=== PATIENT | female | born 2005 | race Caucasian/White ===

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

== ENCOUNTER 2023-04-27 12:31 | Emergency (ER) | payer BC, SELFPAY ==
[2023-04-27 12:47] VITALS: BP 145/68; PULSE 109; RESP 16; TEMP 36.9; O2SAT 100
--- NOTE | 2023-04-27 12:56 | NUR.NOTE ---
Nursing Note: ice pack given
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
[2023-04-27] MEDS: Ibuprofen 600 MG TAB PO (15:56)
[2023-04-27] MEDS: Acetaminophen 500 MG TAB 1000 MG PO (15:56)
[2023-04-27 16:08] VITALS: BP 112/69; PULSE 73; RESP 16; O2SAT 99
== END 2023-04-27 16:38 | disposition home or self-care (01) ==
PROVIDERS: Emergency Provider Emergency Medicine; PCP Student in an Organized Health Care Education/Training Program
DX: S09.90XA Unspecified injury of head, initial encounter (principal); S70.311A Abrasion, right thigh, initial encounter; Y04.2XXA Assault by strike against or bumped into by another person, initial encounter; Y93.89 Activity, other specified; Y92.89 Other specified places as the place of occurrence of the external cause; Y99.9 Unspecified external cause status
CPT/HCPCS: 99282

== ENCOUNTER 2023-10-25 15:14 | Emergency (ER) | payer BC, SELFPAY ==
[2023-10-25 15:18] VITALS: BP 110/68; PULSE 63; RESP 20; TEMP 37.1; O2SAT 100
--- NOTE | 2023-10-25 15:21 | W.ED.GENAD ---
HPI General Date/Time Provider Initiated Documentation: 10/25/23 15:21. HPI Narrative: MDM This is an overall well-appearing normothermic and not tachycardic 18-year-old female with recurrent suprapubic discomfort reminiscent of prior episodes of dysmenorrhea. No vaginal bleeding to suggest benefit from transfusion. Patient has recently been treated by [facility] for chlamydia however in the absence of fevers abnormal vaginal discharge and unilateral pain my suspicion for tubo-ovarian abscess is low. Furthermore given no abnormal vaginal discharge and normothermia my suspicion for pelvic inflammatory disease is low so I did not complete a speculum exam nor feel that the patient required antibiotics. No pain out of proportion to suggest necrotizing soft tissue infection. No flank pain to suggest ureterolithiasis. Based on the patient's age my suspicion for ruptured AAA is exceedingly low so I did not feel that the patient required a CT scan. No right lower quadrant tenderness to suggest appendicitis. No left lower quadrant tenderness to suggest diverticulitis. No history of past abdominal surgeries so my suspicion is low for SBO. No dysuria nor frequency so doubt urinary tract infection. No rash to abdomen to suggest zoster. Given her marijuana use it is certainly possible that this could be contributing to her abdominal pain she does have a history of cyclic vomiting syndrome and she could possibly have a history of cannabinoid hyperemesis syndrome. Given patient's emesis will obtain basic labs to assess for hypokalemia, provide ondansetron for nausea, ketorolac for pain, and treat with 500 cc of crystalloid. If symptoms do not improve with ondansetron we will consider low-dose droperidol. Certainly given that she has not been able to be adherent with her patch her dysmenorrhea could be the cause of her symptoms. 4:11 PM CBC lacks anemia thrombocytopenia and leukocytosis. Serum hCG negative. Basic metabolic panel showing mild anion gap at 12.4. Potassium of 3.1 mmol/L. Given potassium greater than 3 will defer ECG at this point as my suspicion for QTc prolongation is low. Patient feels improved. She is no longer vomiting. 4:20 PM Patient passed p.o. trial in the emergency department. She felt markedly improved. Will prescribe short course of ondansetron as needed. Will advise PCP follow-up as needed and advise ED return for worsening pain or inability to tolerate p.o. Chronic conditions affecting the care of the patient: Dysmenorrhea History obtained from an outside historian: N/A External record [place] [facility] [place]enter[place] appointments Medications: Ketorolac fluids ondansetron Social determinants of health affecting disposition: N/A Management discussed with: N/A Treatment/interventions considered: N/A Response to therapies provided: Improved symptoms following treatment HPI This is a 18-year-old female with a history of dysmenorrhea on oral contraceptive patch arrived to the emergency department via private vehicle in the setting of menstrual cramping. Patient reports that she has not been able to adhere with her patch as it frequently comes off when she takes a shower. She says that she feels nauseous and suddenly began vomiting this afternoon. Symptoms are reminiscent of prior episodes of dysmenorrhea. She endorses a cramping pelvic and suprapubic pain. She was treated several weeks ago for chlamydia but has not had any abnormal vaginal discharge. She denies dysuria frequency. She has never had any surgeries to her abdomen. She denies routine tobacco and ethanol but does smoke marijuana. She has had no fevers. No falls in her abdomen. No rash to her abdomen. No history of ureterolithiasis. Patient denies vaginal bleeding. Exam General: Uncomfortable-appearing in no acute distress speaking in complete sentences. Head: Normocephalic, atraumatic. Eye: Extraocular eye movements intact. No conjunctival injection. No scleral icterus. Ear, nose, mouth, throat: Grossly normal inspection. Normal voice, handling secretions normally. Neck: Trachea midline. Cardiovascular: Well-perfused distal extremities. Regular rate and rhythm Respiratory: Nonlabored respiration. Clear lungs bilaterally Gastrointestinal: Nondistended abdomen. Soft nontender. No rebound. No guarding. No rash to abdomen. Musculoskeletal: No edema. Moving all 4 extremities spontaneously. Skin: Normal for age and race, grossly normal temperature and turgor. No acute rash. Neurologic: Alert and appropriate, no apparent acute deficits. Psychiatric: Mood and manner are appropriate. Grooming and personal hygiene are appropriate. Related Data Home Medications Medication Instructions Recorded Confirmed methylphenidate HCl 5 mg tablet 5 mg PO DAILY PRN ADHD #30 tabs 01/30/22 10/25/23 amitriptyline 10 mg tablet 10 mg PO DAILY #30 tabs 04/17/22 10/25/23 amitriptyline 25 mg tablet 25 mg PO QHS #90 tabs 04/17/22 10/25/23 methylphenidate HCl 27 mg 27 mg PO QAM #30 tabs 08/12/22 10/25/23 tablet,extended release 24 hr (Concerta) naproxen 500 mg tablet 500 mg PO DAILY PRN pain #30 tabs 08/12/22 10/25/23 omeprazole 20 mg capsule,delayed 20 mg PO BID #60 caps 08/12/22 10/25/23 release ondansetron 4 mg disintegrating 4 mg PO Q6H PRN nausea and 08/12/22 10/25/23 tablet vomiting #14 tabs promethazine 25 mg tablet 25 mg PO Q6H PRN #12 tabs 10/13/22 10/25/23 levonorgestrel-ethinyl estradiol 1 tab PO DAILY #84 tabs 05/28/23 10/25/23 0.1 mg-20 mcg tablet norelgestromin 150 mcg-e.estradiol 1 patch transdermal QWEEK 10/25/23 10/25/23 35 mcg/24 hr weekly transderm patch (Xulane) norelgestromin 150 mcg-e.estradiol 1 patch transdermal Q7D 10/25/23 10/25/23 35 mcg/24 hr weekly transderm patch (Zafemy) ondansetron 4 mg disintegrating 4 mg PO BID 5 days #10 tabs 10/25/23 tablet Previous Rx's Medication Instructions Recorded methylphenidate HCl 5 mg tablet 5 mg PO DAILY PRN ADHD #30 tabs 01/30/22 amitriptyline 10 mg tablet 10 mg PO DAILY #30 tabs 04/17/22 amitriptyline 25 mg tablet 25 mg PO QHS #90 tabs 04/17/22 methylphenidate HCl 27 mg 27 mg PO QAM #30 tabs 08/12/22 tablet,extended release 24 hr (Concerta) naproxen 500 mg tablet 500 mg PO DAILY PRN pain #30 tabs 08/12/22 omeprazole 20 mg capsule,delayed 20 mg PO BID #60 caps 08/12/22 release ondansetron 4 mg disintegrating 4 mg PO Q6H PRN nausea and 08/12/22 tablet vomiting #14 tabs promethazine 25 mg tablet 25 mg PO Q6H PRN #12 tabs 10/13/22 levonorgestrel-ethinyl estradiol 1 tab PO DAILY #84 tabs 05/28/23 0.1 mg-20 mcg tablet ondansetron 4 mg disintegrating 4 mg PO BID 5 days #10 tabs 10/25/23 tablet Allergies Allergy/AdvReac Type Severity Reaction Status Date / Time No Known Allergies Allergy Verified 10/25/23 16:10 General KAYY: 3 Medical Decision Making Quality:SDOH Health Related Social Needs: No Data to Display PFSH All Active Problems (Updated 10/25/23 @ 16:21 by Mp Feliciano MD) Menstrual cramps (Acute) Localized swelling of right forearm (Acute) Swelling (Acute) Dysmenorrhea (Acute) Cyclic vomiting syndrome (Acute) Abdominal pain (Acute) with N/V/D referred to GI with plan for endoscopy and colonscopy Generalized anxiety disorder (Acute) ADHD (attention deficit hyperactivity disorder), combined type (Acute) Dysthymia (Acute) Contraception (Acute) Chronic migraine (Acute) Followed by Neuro. typically during menses. Last neuro note states that they should provide advil before onset of menses and continue through. If that does not work will consider taking Topamax on the same schedule. Medical History Depression Migraine Nausea & vomiting Family History Mother Depression Father No problems noted. Sister Depression Ino-Danlos disease Sister Depression Brother No problems noted. Brother No problems noted. Brother No problems noted. Brother No problems noted. GRANDPARENT Substance abuse Essential hypertension Hyperlipidemia Mental disorder DEPRESSIN Neoplasm Social History Smoking/Tobacco Use Status: Never Smoking risk assessment performed?: Yes Alcohol Intake: current Alcohol Intake frequency: a few times a month Drug use: Occasionally Substance use type: marijuana Details: Pt has a medical marijuana card Housing: house Pets and animals: Yes Pets and animals: dog(s) Sexually active: Yes Do you think of yourself as: straight/heterosexual Current gender identity: female Do you feel safe at home: Yes Do you feel safe in your relationship?: Yes Female Reproductive History Menstrual Age of Menarche: 8 Duration of menses: 6-7 days control method: condoms History History 0 Para Hx # Term Pregnancies Multiple births Hx # Pregnancies Ectopic pregnancies AB induced Hx Number of Living Children AB spontaneous Discharge Plan Disposition Patient Disposition: Home Discharge Details Clinical Impression: Menstrual cramps Primary Care Provider: Vera,Local ED Provider: Mp Feliciano [place] Meds and New Rx's Prescriptions: New ondansetron 4 mg tablet,disintegrating 4 mg PO BID 5 Days Qty: 10 0RF Continued ondansetron 4 mg tablet,disintegrating 4 mg PO Q6H PRN (Reason: nausea and vomiting) Qty: 14 1RF Patient Comments: pt states she does not take anymore Rx Instructions: take one tablet as needed every 6 hours for nausea and vomiting naproxen 500 mg tablet 500 mg PO DAILY PRN (Reason: pain) Qty: 30 0RF methylphenidate HCl [Concerta] 27 mg tablet extended release 24hr 27 mg PO QAM MDD 27mg Qty: 30 0RF Rx Instructions: take one capsule once a day in the morning omeprazole 20 mg capsule,delayed release(DR/EC) 20 mg PO BID Qty: 60 1RF Patient Comments: pt states she does not take anymore Rx Instructions: take one capsule twice a day for 4 weeks methylphenidate HCl 5 mg tablet 5 mg PO DAILY MDD 5 mg PRN (Reason: ADHD) Qty: 30 0RF Rx Instructions: take one tablet once a day in the afternoon as needed amitriptyline 25 mg tablet 25 mg PO QHS Qty: 90 1RF Rx Instructions: take one tablet once a day at bedtime amitriptyline 10 mg tablet 10 mg PO DAILY Qty: 30 3RF Rx Instructions: take one tablet once a day in addition to amitriptyline 25 mg levonorgestrel-ethinyl estrad 0.1-20 mg-mcg tablet 1 tab PO DAILY Qty: 84 0RF norelgestromin-ethin.estradiol [Xulane] 150-35 mcg/24 hr patch weekly 1 patch transdermal QWEEK Rx Instructions: apply once weekly for 3 weeks of a 4-week cycle norelgestromin-ethin.estradiol [Zafemy] 150-35 mcg/24 hr patch weekly 1 patch transdermal Q7D Patient Comments: PLACE ONE PATCH ON THE SKIN ONE TIME PER WEEK. CHANGE PATCH WEEKLY, USE PATCH CONTINUOUSLY WITHOUT BREAKS. promethazine 25 mg tablet 25 mg PO Q6H PRNQty: 12 0RF Patient Comments: pt states she does not take anymore Discharge Instructions Additional Instructions: You are seen in the emergency department for your abdominal pain. Your blood work showed no signs of infection. Please return as we discussed the emergency department if you develop worsening pain cannot eat or drink or if you have any other concerns. Otherwise please follow-up with your primary care provider. A short course of nausea medicine has been sent electronically to your pharmacy. Please take these if needed. Discharge Data Discharge Date/Time-TO BE ENTERED AT DEPARTURE: 10/25/23 16:32
[2023-10-25] MEDS: Ondansetron 4 MG/2 ML VIAL IVP (15:43)
[2023-10-25] MEDS: Normal Saline 500 ML IV (15:44)
[2023-10-25] MEDS: Ketorolac 15 MG/ML VIAL IVP (15:44)
[2023-10-25 15:45] LABS: Abs Immature Grans 0.02 10^3/uL (0.0-0.06); Absolute Basophil Count 0.06 10^3/uL (0.0-0.2); Absolute Eosinophil Count 0.13 10^3/uL (0.0-0.7); Absolute Lymphocyte Count 3.26 10^3/uL (1.2-3.4); Absolute Monocyte Count 0.55 10^3/uL (0.1-0.8); Basophils % 0.8; Eosinophils % 1.7; HCT 39.2 % (36.0-46.0); HGB 13.4 g/dL (11.2-15.7); Immature Grans % 0.3; Lymphocytes % 42.8; MCH 30.5 pg (27.0-33.0); MCHC 34.2 % (32.0-36.0); MCV 89 fL (80-95); MPV 10.2 fL (8.0-11.0); Monocytes % 7.2; Neutrophils % 47.2; Platelet Count 199 10^3/uL (130-400); RDW 11.9 % (11.7-14.6); RDW-SD 38.3 fL; WBC 7.62 10^3/uL (4.4-10.8)
[2023-10-25 15:55] LABS: Anion Gap 12.4 mmol/L (3-11); BUN 13 mg/dL (7-18); CO2 24.6 mmol/L (21.0-32.0); CREATININE 0.9 mg/dL (0.55-1.02); Calcium 9.1 mg/dL (8.5-10.1); Chloride 107 mmol/L (98-107); Estimated GFR 93.86 (mL/min/1.73m2); Glucose 105 mg/dL (74-106); Potassium 3.1 mmol/L (3.5-5.1); Sodium 144 mmol/L (136-145)
[2023-10-25 16:05] LABS: HCG Qual (Serum) Negative
[2023-10-25 16:29] VITALS: BP 113/77; PULSE 71; RESP 13; O2SAT 99
== END 2023-10-25 16:32 | disposition home or self-care (01) ==
LOC: ER 16:46
PROVIDERS: Emergency Provider Emergency Medicine
DX: R11.2 Nausea with vomiting, unspecified; N94.6 Dysmenorrhea, unspecified; Z79.3 Long term (current) use of hormonal contraceptives; Z79.899 Other long term (current) drug therapy
CPT/HCPCS: 80048; 96361; 96374; 96375; 99284; 84703; 85025; J1885; J2405

== ENCOUNTER 2024-09-02 13:50 | Emergency (ER) | payer BC, SELFPAY ==
[2024-09-02 14:13] VITALS: BP 128/87; PULSE 109; RESP 16; TEMP 36.7; O2SAT 100
[2024-09-02] MEDS: Normal Saline 500 ML IV (15:29)
--- NOTE | 2024-09-02 15:32 | W.ED.GENAD ---
Discharge Plan Disposition Patient Disposition: Home Condition: Stable Discharge Details Clinical Impression: Dysmenorrhea Primary Care Provider: Unknown,Unknown ED Provider: Pretty Phelan Home Meds and New Rx's Prescriptions: Continued ondansetron 4 mg tablet,disintegrating 4 mg PO Q6H PRN (Reason: nausea and vomiting) Qty: 14 1RF Patient Comments: pt states she does not take anymore Rx Instructions: take one tablet as needed every 6 hours for nausea and vomiting naproxen 500 mg tablet 500 mg PO DAILY PRN (Reason: pain) Qty: 30 0RF omeprazole 20 mg capsule,delayed release(DR/EC) 20 mg PO BID Qty: 60 1RF Patient Comments: pt states she does not take anymore Rx Instructions: take one capsule twice a day for 4 weeks norelgestromin-ethin.estradiol [Xulane] 150-35 mcg/24 hr patch weekly 1 patch transdermal QWEEK Rx Instructions: apply once weekly for 3 weeks of a 4-week cycle norelgestromin-ethin.estradiol [Zafemy] 150-35 mcg/24 hr patch weekly 1 patch transdermal Q7D Patient Comments: PLACE ONE PATCH ON THE SKIN ONE TIME PER WEEK. CHANGE PATCH WEEKLY, USE PATCH CONTINUOUSLY WITHOUT BREAKS. clomipramine 25 mg capsule 25 mg PO DAILY PRN Patient Comments: TAKE ONE CAPSULE BY MOUTH EVERY DAY Discharge Instructions Instructions: Painful periods Additional Instructions: At this time your labs are largely within normal limits. No please take the nausea medication 20 to 30 minutes prior to eating or drinking anything. Please take Tylenol or Ibuprofen with food every 4-6 hours as needed for pain and swelling. Please take this with food. Small frequent meals. Follow up with primary care provider in 3-5 days. Return to ED sooner if any worsening or concerns. Thank you for allowing us to care for you today Referrals: [facility] [Provider Group] - 3 days Discharge Data Discharge Date/Time-TO BE ENTERED AT DEPARTURE: 09/02/24 16:53 HPI <CARLITA Frances - Last Filed: 09/04/24 19:29> General Date/Time Provider Initiated Documentation: 09/02/24 14:20. HPI Narrative: This is a 18-year-old female presents with lower abdominal pain with menses approximately 1 week. History of dysmenorrhea. States that frequently she requires evaluation secondary to nausea vomiting and pain with her menses. Denies any chance of . Denies any blood in vomitus or chance of . Sexually active and monogamous with her boyfriend denies risk of STDs. Related Data Home Medications ?Medication ?Instructions ?Recorded ?Confirmed naproxen 500 mg tablet 500 mg PO DAILY PRN pain #30 tabs 08/12/22 09/02/24 omeprazole 20 mg capsule,delayed 20 mg PO BID #60 caps 08/12/22 09/02/24 release ondansetron 4 mg disintegrating 4 mg PO Q6H PRN nausea and 08/12/22 09/02/24 tablet vomiting #14 tabs norelgestromin 150 mcg-e.estradiol 1 patch transdermal QWEEK 10/25/23 09/02/24 35 mcg/24 hr weekly transderm patch (Xulane) norelgestromin 150 mcg-e.estradiol 1 patch transdermal Q7D 10/25/23 09/02/24 35 mcg/24 hr weekly transderm patch (Zafemy) clomipramine 25 mg capsule 25 mg PO DAILY PRN 09/02/24 09/02/24 Previous Rx's ?Medication ?Instructions ?Recorded naproxen 500 mg tablet 500 mg PO DAILY PRN pain #30 tabs 08/12/22 omeprazole 20 mg capsule,delayed 20 mg PO BID #60 caps 08/12/22 release ondansetron 4 mg disintegrating 4 mg PO Q6H PRN nausea and 08/12/22 tablet vomiting #14 tabs Allergies Allergy/AdvReac Type Severity Reaction Status Date / Time No Known Allergies Allergy Verified 09/02/24 14:16 General 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 Exam <CARLITA Frances - Last Filed: 09/04/24 19:29> Narrative Exam Narrative: Alert and oriented 18-year-old female in acute discomfort, some mild diffuse lower abdominal pain, vomiting, white mucous membranes, alert and oriented x 4 Course <CARLITA Frances - Last Filed: 09/04/24 19:29> Vital Signs Vital signs: Vital Signs Temperature 36.7 C 09/02/24 14:13 Pulse 109 H 09/02/24 14:13 Respiratory Rate 16 09/02/24 14:13 Blood Pressure 128/87 09/02/24 14:13 Pulse Oximetry 100 09/02/24 14:13 Temperature 36.7 C 09/02/24 14:13 Pulse 109 H 09/02/24 14:13 Respiratory Rate 16 09/02/24 14:13 Respiratory Effort Normal 09/02/24 14:15 Blood Pressure 128/87 09/02/24 14:13 Pulse Oximetry 100 09/02/24 14:13 Pain Level 9 09/02/24 14:13 Medical Decision Making <CARLITA Frances - Last Filed: 09/04/24 19:29> 18-year-old female presenting with abdominal discomfort nausea and vomiting consistent with her prior menses. At this time secondary to nausea vomiting and pain, I will order nausea meds, Toradol, and basic labs. I do not feel patient needs any additional imaging at this time. Pending POC , I think if patient is able to tolerate p.o. and she is feeling symptomatically improved she stable for discharge home Quality:SDAZ Health Related Social Needs: No Data to Display <Pretty Phelan NP - Last Filed: 09/02/24 21:06> Medical Records Medical records narrative: Care assumed from provider (Xiomy) Please see their initial HPI, PE, and documentation. Discussed patient details and case and pending workup and disposition. Patient is hemodynamically stable, and alert and oriented. At the time of signout awaiting labs and reeval. On reevaluation patient still complaining of some pain but states it is manageable. Will try p.o. challenge and write up for discharge with some nausea medications. I will also discuss a possible outpatient ultrasound if pain persists. Patient is tolerating p.o. without any further emesis. Discharge home discussed follow-up care and strict return instructions. This text was generated using 1calendaration system, please disregard any oddities of phrase or misspellings. PFSH <CARLITA Frances - Last Filed: 09/04/24 19:29> All Active Problems (Updated 09/02/24 @ 16:41 by Pretty Phelan NP) Dysmenorrhea (Acute) Localized swelling of right forearm (Acute) Swelling (Acute) Dysmenorrhea (Acute) Cyclic vomiting syndrome (Acute) Abdominal pain (Acute) with N/V/D referred to GI with plan for endoscopy and colonscopy Generalized anxiety disorder (Acute) ADHD (attention deficit hyperactivity disorder), combined type (Acute) Dysthymia (Acute) Contraception (Acute) Chronic migraine (Acute) Followed by Neuro. typically during menses. Last neuro note states that they should provide advil before onset of menses and continue through. If that does not work will consider taking Topamax on the same schedule. Medical History Depression Migraine Nausea & vomiting Family History Mother Depression Father No problems noted. Sister Depression Ino-Danlos disease Sister Depression Brother No problems noted. Brother No problems noted. Brother No problems noted. Brother No problems noted. GRANDPARENT Substance abuse Essential hypertension Hyperlipidemia Mental disorder DEPRESSIN Neoplasm Social History Smoking/Tobacco Use Status: Never Smoking risk assessment performed?: Yes Alcohol Intake: current Alcohol Intake frequency: a few times a month Drug use: Occasionally Substance use type: marijuana Details: Pt has a medical marijuana card Housing: house Pets and animals: Yes Pets and animals: dog(s) Sexually active: Yes Do you think of yourself as: straight/heterosexual Current gender identity: female Do you feel safe at home: Yes Do you feel safe in your relationship?: Yes Female Reproductive History Menstrual Age of Menarche: 8 Duration of menses: 6-7 days control method: condoms History History 0 Para Hx # Term Pregnancies Multiple births Hx # Pregnancies Ectopic pregnancies AB induced Hx Number of Living Children AB spontaneous
[2024-09-02 15:33] LABS: Abs Immature Grans 0.05 10^3/uL (0.0-0.06); Absolute Basophil Count 0.07 10^3/uL (0.0-0.2); Absolute Eosinophil Count 0.14 10^3/uL (0.0-0.7); Absolute Monocyte Count 0.91 10^3/uL (0.1-0.8); Basophils % 0.5 %; HCT 46.6 % (36.0-46.0); HGB 15.4 g/dL (11.2-15.7); Immature Grans % 0.4 %; Lymphocytes % 15.8 %; MCV 91 fL (80-95); MPV 10.4 fL (8.0-11.0); Monocytes % 6.6 %; Neutrophils % 75.7 %; Platelet Count 255 10^3/uL (130-400); RBC 5.14 10^6/uL (3.93-5.22); RDW 11.9 % (11.7-14.6); RDW-SD 39.7 fL; WBC 13.84 10^3/uL (4.4-10.8)
[2024-09-02] MEDS: Ondansetron 4 MG/2 ML VIAL IVP (15:33)
[2024-09-02 15:34] LABS: Absolute Lymphocyte Count 2.19 10^3/uL (1.2-3.4); Absolute Neutrophil Count 10.48 10^3/uL (1.2-6.7)
[2024-09-02] MEDS: Orphenadrine 60 MG/2 ML VIAL IVP (15:34)
[2024-09-02 15:49] LABS: ALT 28 U/L (14-59); AST 23 U/L (15-37); Alkaline Phosphatase 73 U/L (46-116); Anion Gap 13.1 mmol/L (3-11); BUN 9 mg/dL (7-18); Bilirubin, Total 0.26 mg/dL (0.2-1.0); CO2 24.9 mmol/L (21.0-32.0); CREATININE 0.9 mg/dL (0.55-1.02); Calcium 9.4 mg/dL (8.5-10.1); Chloride 104 mmol/L (98-107); Estimated GFR 93.86 (mL/min/1.73m2); Glucose 96 mg/dL (74-106); Potassium 3.7 mmol/L (3.5-5.1); Sodium 142 mmol/L (136-145); Total Protein 8.1 g/dL (6.4-8.2)
[2024-09-02] MEDS: Ondansetron O.D.T. 4 MG TABEF, 3 TABS/BTL PO (16:50)
[2024-09-02 16:56] VITALS: BP 128/85; PULSE 84; RESP 16; TEMP 37.1; O2SAT 97
== END 2024-09-02 16:53 | disposition home or self-care (01) ==
PROVIDERS: Physician Assistant; Emergency Provider Registered Nurse Emergency
DX: N94.6 Dysmenorrhea, unspecified (principal); R11.2 Nausea with vomiting, unspecified
CPT/HCPCS: 80053; 96361; 96374; 96375; 99284; J2360; 85025; J2405